=== PATIENT | male | born 1960 | race American Indian/Alaskan Native ===

== ENCOUNTER 2017-08-03 15:00 | Emergency (ER) | payer SELFPAY ==
[~2017-08-03 15:00] MED LIST: XYLOCAINE MPF 2% ONE
--- NOTE | 2017-08-03 15:53 | XRay Report ---
FINAL REPORT EXAM: XR NECK SOFT TISSUE HISTORY: foreign body TECHNIQUE: AP and lateral views of the neck soft tissues PRIORS: None. FINDINGS: No radiopaque foreign body is identified. The tracheal air shadow is patent throughout. No prevertebral soft tissue swelling is seen. The epiglottis is normal. The adenoids and palatine tonsils are normal. Bony structures are unremarkable. IMPRESSION: No radiopaque foreign body identified. Negative views of the soft tissues of the neck.
--- NOTE | 2017-08-03 17:35 | Emergency Department Report ---
HPI - General Chief Complaint: Skin/Abscess/Foreign Body Time Seen by Provider: 08/03/17 17:16 - HPI HPI: Room 2 The patient is a 57-year-old male presenting with a chief complaint of food impaction. The patient states at 13:30 while eating ribs, it felt like the food got stuck in his upper chest. The patient states he's been unable to swallow anything since including his saliva. Patient is sitting on stretcher frequently spitting into an emesis bag. The patient states she had a similar episode approximately 1.5 months ago and went to [facility] where he believes he had an EGD performed. Location: Esophagus Duration: Constant since 13:30 Quality: Discomfort Severity: Moderate Modifying factors: [see above] Context: [see above] Mode of transportation: [not driving] ED Past Medical Hx - Past Medical History Previous Medical History?: No - Surgical History Past Surgical History?: No - Family History Family history: no significant - Social History Smoking Status: Current Every Day Smoker (1/10 pack per day) Substance Use Type: None (denies illicit drug use) - Medications Home Medications: Home Medications Medication Instructions Recorded Confirmed Last Taken Type Pantoprazole [Protonix] 40 mg PO BID #28 tablet 08/03/17 Unknown Rx ED Review of Systems ROS: Stated complaint: FOREIGN BODY THROAT Other details as noted in HPI Gastrointestinal: other (food impaction) Physical Exam - Physical Exam Vital Signs: Vital Signs 08/03/17 15:03 Temperature 98.6 F Pulse Rate 95 H Respiratory 16 Rate Blood Pressure 139/82 O2 Sat by Pulse 98 Oximetry Physical Exam: GENERAL: The patient is well-developed well-nourished male lying on stretcher not appearing to be in acute distress. [] HEENT: Normocephalic. Atraumatic. Oropharynx clear. NECK: Supple. No meningitic signs are noted. There is no adenopathy noted. No stridor CHEST/LUNGS: Clear to auscultation. There is no respiratory distress noted. HEART/CARDIOVASCULAR: Regular. There is no tachycardia. There is no gallop rub or murmur. ABDOMEN: Abdomen is soft, nontender. Patient has normal bowel sounds. There is no abdominal distention. SKIN: There is no rash. There is no edema. There is no diaphoresis. NEURO: The patient is awake, alert, and oriented. The patient is cooperative. The patient has no focal neurologic deficits. The patient has normal speech MUSCULOSKELETAL: There is no evidence of acute injury. ED Course Vital Signs 08/03/17 15:03 Temperature 98.6 F Pulse Rate 95 H Respiratory 16 Rate Blood Pressure 139/82 O2 Sat by Pulse 98 Oximetry - Consultations Consultation #1: 08/03/17 17:32 Gastroenterology paged 08/03/17 18:[address] Coker- request basic labs and peripheral IV. Will come perform an EGD ED Medical Decision Making - Lab Data Result diagrams: 08/03/17 17:36 08/03/17 17:36 - Radiology Data Radiology results: report reviewed (lateral soft tissue neck x-ray), image reviewed (lateral soft tissue neck x-ray) interpreted by me: Lateral soft tissue neck x-ray- no radiopaque foreign body seen. There is air visible in the esophagus - Differential Diagnosis food impaction Critical care attestation.: If time is entered above; I have spent that time in minutes in the direct care of this critically ill patient, excluding procedure time. ED Disposition Clinical Impression: Food impaction of esophagus Disposition: DC-01 TO HOME OR SELFCARE Is pt being admited?: No Does the pt Need Aspirin: No Condition: Stable Instructions: Food Impaction (ED) Additional Instructions: Return to the emergency department immediately should you develop worsening symptoms, fever, inability to tolerate food or liquid or any other concerns. Prescriptions: Pantoprazole [Protonix] 40 mg PO BID #28 tablet Referrals: PRIMARY CARE, [Primary Care Provider] - 3-5 Days FELIZ COKER MD [Staff Physician] - 7-10 days (Dr. Coker is a nutrition services assistant. Please follow-up with him for further evaluation) Time of Disposition: 20:05
[2017-08-03 17:46] LABS: Basophils # (Auto) 0.1 K/mm3 (0.0-0.1); Basophils % (Auto) 0.5 % (0.0-1.8); Eosinophils # (Auto) 0.1 K/mm3 (0.0-0.4); Eosinophils % (Auto) 0.9 % (0.0-4.3); Lymphocytes # (Auto) 2.4 K/mm3 (1.2-5.4); Mean Corpuscular HGB Conc 30 % (32-34); Monocytes # (Auto) 1.2 K/mm3 (0.0-0.8); Monocytes % (Auto) 8.1 % (0.0-7.3); Platelet Count 297 K/mm3 (140-440); Red Blood Count 5.27 M/mm3 (3.65-5.03); Red Cell Distribution Width 19.7 % (13.2-15.2)
[2017-08-03 17:47] LABS: Hemoglobin 9.9 gm/dl (11.8-15.2); Mean Corpuscular Hemoglobin 19 pg (28-32); Mean Corpuscular Volume 63 fl (84-94)
[2017-08-03 17:55] LABS: INR 0.97 (0.87-1.13)
[2017-08-03 17:57] LABS: Partial Thromboplastin Time 28.7 Sec. (24.2-36.6)
[2017-08-03 18:12] LABS: BUN/Creatinine Ratio 12; Blood Urea Nitrogen 7 mg/dL (9-20); Calcium 10.1 mg/dL (8.4-10.2); Hemolysis Index 0
--- NOTE | 2017-08-03 19:00 | Anesthesia Consultation ---
Anesthesia Consult and Med Hx Date of service: 08/03/17 - Airway Anesthetic Teeth Evaluation: Poor (multiple missing including upper incisor) ROM Head & Neck: Adequate Mental/Hyoid Distance: Adequate Mallampati Class: Class II Intubation Access Assessment: Probably Good - Pulmonary Exam CTA: Yes - Cardiac Exam Cardiac Exam: RRR - Pre-Operative Health Status ASA Pre-Surgery Classification: ASA2 Proposed Anesthetic Plan: MAC - Pulmonary Hx Smoking: Yes Hx Asthma: No SOB: No - Cardiovascular System Hx Hypertension: No (currently is hypertensive - not on any medications) Hx Heart Attack/AMI: No - Endocrine Hx Renal Disease: No - Other Systems Hx Alcohol Use: Yes Hx Substance Use: No (denies)
--- NOTE | 2017-08-03 19:01 | Anesthesia Day of Surgery ---
Anesthesia Day of Surgery - Day of Surgery Patient Examined: Yes Patient H&P Reviewed: Yes Patient is NPO: No (was eating when food got 'stuck' and now can not keep down any liquids)
[2017-08-03] MEDS ORDERED: DIPRIVAN 10 MG/ML IV ONE (19:20)
[2017-08-03] MEDS ORDERED: NACL 0.9% 1000 ML 1,000 ML ONE (19:21)
[2017-08-03 20:25] VITALS: BP 133/86
--- NOTE | 2017-08-04 09:07 | Operative Report ---
Esophagogastroduodenoscopy Report INDICATION: Food impaction, epigastric pain. MEDICATION: Propofol per [employer]SEMBLER. COMPLICATIONS: None. DESCRIPTION OF PROCEDURE: The patient was done in the Emergency Room. The patient had the procedure discussed with her at length. All risks, complications, and benefits were discussed after which the patient signed for the procedure performed. The patient was placed in left lateral decubitus position. Mouth block was placed in the patient's oral cavity. After adequate sedation medication as above, the endoscope was introduced into the mouth and brought to the second portion of duodenum. Retroflexion view performed. The patient's vital signs remained stable throughout the procedure. FINDINGS: There was noted to be moderate inflammation and irritation noted 20 cm from the gums. There were two rings of mild stricture noted in that area, but the scope was easily passed. It was felt that this was the area of food impaction that was now passed. There was noted to be white material along the length of the esophagus, raising the possibility of Claudia. No biopsies were taken during this procedure. A medium hiatal hernia at GE junction at 40 cm from the gums. The esophagus, otherwise, appeared to be normal. Mild gastritis , but the stomach and duodenum otherwise appeared normal. Retroflexion showed no other pathology. The patient tolerated the procedure well. No complications during the procedure. IMPRESSION: 1. There was an area of inflammation 20 cm from the gums with mild stricturing , probable area of previous food impaction, which was now dislodged. 2. Hiatal hernia. 3. Otherwise, benign esophagogastroduodenoscopy. RECOMMENDATIONS: 1. PPI daily. 2. Clear liquid diet. 3. Follow up as an outpatient for repeat EGD with possible dilation. MTDD
--- NOTE | 2017-08-05 14:56 | Consultation ---
INDICATION: 1. Food impaction. 2. Nausea, vomiting. REFERRING PHYSICIAN: Tiffanie Lundberg M.D. HISTORY OF PRESENT ILLNESS: The patient is a 57-year-old black male with history of undiagnosed hypertension, presents for food impaction. The patient reports approximately a month ago, he had a food impaction and had cleared at [place]. The patient reports this evening, he was eating some grapes, felt as if he got stuck in his lower esophageal area. He reports since that time, he has been unable to handle his secretions. He reports some nausea without vomiting. Denies fevers or chills. Denies history of reflux. Denies any lower GI symptoms including diarrhea, constipation or rectal bleeding. No other specific complaints. PAST MEDICAL HISTORY: None. MEDICATIONS: None. ALLERGIES: No known drug allergies. SOCIAL HISTORY: Reports social alcohol, denies tobacco. FAMILY HISTORY: Negative for colon cancer, IBD, or liver disease. REVIEW OF SYSTEMS: GENERAL: Reports mild weakness. HEENT: No visual complaints or tinnitus. PULMONARY: No shortness of breath. No cough. No chest pain. GASTROINTESTINAL: Reports food impaction. All points of 13-point review of systems otherwise negative. PHYSICAL EXAMINATION: VITAL SIGNS: Temperature 98.6, pulse 95, respirations 18, blood pressure 139/ 82. GENERAL: Fairly nourished black male, in no acute distress. HEENT: Pupils equal, round, and reactive. PULMONARY: Clear. CARDIOVASCULAR: Regular rhythm. Normal S1, S2. ABDOMEN: Positive bowel sounds, soft. SKIN: No obvious rashes. LABORATORY DATA: Pertinent for white count of 14.9, hemoglobin and hematocrit of 9.9 and 33, platelet count 297. Coags within normal limits. Chem-7 within normal limits. ASSESSMENT AND PLAN: A 57-year-old male presents with probable food impaction. PLAN: 1. NPO. 2. IV access. 3. Plan EGD today. MTDD
--- NOTE | 2017-08-07 08:48 | Consultation ---
INDICATION: 1. Food impaction. 2. Nausea, vomiting. REFERRING PHYSICIAN: Tiffanie Lundberg M.D. HISTORY OF PRESENT ILLNESS: The patient is a 57-year-old black male with history of undiagnosed hypertension, presents for food impaction. The patient reports approximately a month ago, he had a food impaction and had cleared at [place]. The patient reports this evening, he was eating some grapes, felt as if he got stuck in his lower esophageal area. He reports since that time, he has been unable to handle his secretions. He reports some nausea without vomiting. Denies fevers or chills. Denies history of reflux. Denies any lower GI symptoms including diarrhea, constipation or rectal bleeding. No other specific complaints. PAST MEDICAL HISTORY: None. MEDICATIONS: None. ALLERGIES: No known drug allergies. SOCIAL HISTORY: Reports social alcohol, denies tobacco. FAMILY HISTORY: Negative for colon cancer, IBD, or liver disease. REVIEW OF SYSTEMS: GENERAL: Reports mild weakness. HEENT: No visual complaints or tinnitus. PULMONARY: No shortness of breath. No cough. No chest pain. GASTROINTESTINAL: Reports food impaction. All points of 13-point review of systems otherwise negative. PHYSICAL EXAMINATION: VITAL SIGNS: Temperature 98.6, pulse 95, respirations 18, blood pressure 139/82. GENERAL: Fairly nourished black male, in no acute distress. HEENT: Pupils equal, round, and reactive. PULMONARY: Clear. CARDIOVASCULAR: Regular rhythm. Normal S1, S2. ABDOMEN: Positive bowel sounds, soft. SKIN: No obvious rashes. LABORATORY DATA: Pertinent for white count of 14.9, hemoglobin and hematocrit of 9.9 and 33, platelet count 297. Coags within normal limits. Chem-7 within normal limits. ASSESSMENT AND PLAN: A 57-year-old male presents with probable food impaction. PLAN: 1. NPO. 2. IV access. 3. Plan EGD today. JOB# [id number] CAB/NTS
--- NOTE | 2017-08-07 08:51 | Operative Report ---
Esophagogastroduodenoscopy Report INDICATION: Food impaction, epigastric pain. MEDICATION: Propofol per [employer]ACEMENT COUNSELOR. COMPLICATIONS: None. DESCRIPTION OF PROCEDURE: The patient has been ____ in the Emergency Room. The patient had the procedure discussed with her at length. All risks, complications, and benefits were discussed after which the patient signed for the procedure performed. The patient was placed in left lateral decubitus position. Mouth block was placed in the patient's oral cavity. After adequate sedation medication as above, the endoscope was introduced into the mouth and brought to the second portion of duodenum. Retroflexion view performed. The patient's vital signs remained stable throughout the procedure. FINDINGS: There was noted to be moderate inflammation and irritation noted 20 cm from the gums. There were two rings of mild stricture noted in that area, but the scope was easily passed. It was felt that this was the area of food impaction that was now passed. There was noted to be white material along the length of the esophagus, raising the possibility of Claudia. No biopsies were taken during this procedure. A medium hiatal hernia at GE junction at 40 cm from the gums. The esophagus, otherwise, appeared to be normal. Mild gastritis, but the stomach and duodenum otherwise appeared normal. Retroflexion showed no other pathology. The patient tolerated the procedure well. No complications during the procedure. IMPRESSION: 1. There was an area of inflammation 20 cm from the gums with mild stricturing, probable area of previous food impaction, which was now dislodged. 2. Hiatal hernia. 3. Otherwise, benign esophagogastroduodenoscopy. RECOMMENDATIONS: 1. PPI daily. 2. Clear liquid diet. 3. Follow up as an outpatient for repeat EGD with possible dilation. JOB# [id number] CAB/NTS
== END 2017-08-03 20:18 | disposition home or self-care (01) ==
LOC: ED 15:00
DX: T18.128A Food in esophagus causing other injury, initial encounter (principal); F17.200 Nicotine dependence, unspecified, uncomplicated; X58.XXXA Exposure to other specified factors, initial encounter; Y93.89 Activity, other specified; Y92.89 Other specified places as the place of occurrence of the external cause; Y99.8 Other external cause status
CPT/HCPCS: 36415; 43247; 70360; 80048; 85025; 85610; 85730; 99284; J2704; J7030